=== PATIENT | female | born 1990 | race African-American/Black ===

== ENCOUNTER → 2020-01-30 | Outpatient (CLI) | payer OTHER ==
[~2020-01-30] MED LIST: MAPA325T8 PO; MAPA500T2 PO; PRENTAB9 PO
--- NOTE | 2020-03-02 13:04 | REP ---
LIMITED OBSTETRICAL ULTRASOUND: HISTORY: Fibroid uterus, advanced . TECHNIQUE: Transabdominal obstetrical ultrasound with color Doppler evaluation. COMPARISON: None available. FINDINGS: Single live advanced gestation identified in cephalic presentation. motion identified. Placenta noted right laterally and grade 2 without placenta previa or abruption. Amniotic fluid volume is normal. LIANE equals 14.9 cm. heart rate equals 150 beats per minute. BIOMETRY CHART: BPD 96 mm 39 weeks 2 days Head circumference 332 mm 37 weeks 6 days Abdominal circumference 355 mm 39 weeks 3 days Femur length 73 mm 37 weeks 4 days Humeral length 64 mm 38 weeks 0 days Gestational age by current measurements is 38 weeks 2 days with estimated date of delivery of 02/11/20. Estimated weight is 3597 grams (76th percentile based on current measurements). Umbilical cord S/D ratio is 2.47. Multiple anterior intramural fibroids are appreciated with the largest 3 fibroids measuring 4.1 x 1.6 x 2.5 cm, 3.5 x 1.6 x 3.8 cm and 5.2 x 4.0 x 5.7 cm. IMPRESSION: 1. Single live advanced gestation with current biometrical measurements at 38 weeks 2 days gestational age. 2. Amniotic fluid volume is within normal limits. 3. Multiple anterior intramural fibroids measuring up to 5.7 cm maximal diameter. MTDD
== END ==
LOC: M RAD 15:43
PROVIDERS: ATTEND Obstetrics & Gynecology
DX: Z36.4 Encounter for antenatal screening for fetal growth retardation (principal); Z3A.38 38 weeks gestation of pregnancy; O34.593 Maternal care for other abnormalities of gravid uterus, third trimester

== ENCOUNTER 2020-02-18 11:47 | Outpatient (CLI) | payer OTHER ==
[~2020-02-18] VITALS: Ht 175.3 cm; Wt 90.3 kg
[~2020-02-18 11:47] MED LIST changes: -MAPA500T2 PO; -PRENTAB9 PO
[2020-02-18 13:20] LABS: HEMATOCRIT 28.8 % (36.0-47.0); HEMOGLOBIN 10.3 g/dl (12.0-15.5); MEAN CORPUSCULAR HEMOGLOBIN 26.6 pg (27.0-33.0); MEAN CORPUSCULAR HGB CONC 35.8 g/dl (32.0-36.5); MEAN CORPUSCULAR VOLUME 74.4 fl (80.0-96.0); PLATELET COUNT, AUTOMATED 192 10^3/uL (150-450); RED BLOOD COUNT 3.87 10^6/uL (4.00-5.40); WHITE BLOOD COUNT 7.3 10^3/uL (4.0-10.0)
[2020-02-18 13:52] LABS: ALBUMIN 2.6 GM/DL (3.2-5.2); ALT/SGPT 11 U/L (12-78); BILIRUBIN,TOTAL 0.7 MG/DL (0.2-1.0); BLOOD UREA NITROGEN 3 MG/DL (7-18); CALCIUM LEVEL 8.4 MG/DL (8.5-10.1); CARBON DIOXIDE LEVEL 25 MEQ/L (21-32); CHLORIDE LEVEL 107 MEQ/L (98-107); CREATININE FOR GFR 0.35 MG/DL (0.55-1.30); GLOMERULAR FILTRATION RATE > 60.0 (>60); GLUCOSE, FASTING 82 MG/DL (70-100); POTASSIUM SERUM 2.9 MEQ/L (3.5-5.1); SODIUM LEVEL 138 MEQ/L (136-145); TOTAL PROTEIN 6.9 GM/DL (6.4-8.2)
[2020-02-18 15:23] LABS: CREATININE,RANDOM URINE 50.2 MG/DL; TOTAL PROTEIN,RANDOM URINE 25.9 MG/DL (0.0-12.0)
== END 2020-02-18 16:30 | disposition home or self-care (01) ==
LOC: M LDO 11:47 → M LDI 11:47 → UNDOADMIN 11:47 → UNDODISIN 16:30 → M LDO 16:30 → EDSTATUS 03-05 08:11
PROVIDERS: ATTEND Registered Nurse
DX: O13.3 Gestational [pregnancy-induced] hypertension without significant proteinuria, third trimester (principal); Z3A.38 38 weeks gestation of pregnancy
CPT/HCPCS: 36415; 59025; 80053; 82239; 82570; 84156; 85027; G0378; G0463

== ENCOUNTER → 2020-02-20 | Outpatient (REF) | payer OTHER ==
[~2020-02-20] MED LIST changes: +MAPA500T2 PO; +PRENTAB9 PO
[2020-02-20 14:09] LABS: URINE TOTAL PROTEIN 14.2 MG/DL (0-12)
[2020-02-20 21:40] LABS: TOTAL PROTEIN 24 HOUR URINE 357.8 MG/24HR (50-150)
== END ==
LOC: M LAB REF 11:37
PROVIDERS: ATTEND Radiology Diagnostic Radiology
DX: Z13.228 Encounter for screening for other metabolic disorders (principal)

== ENCOUNTER 2020-02-25 11:32 | Inpatient (IN) | payer OTHER ==
[~2020-02-25] VITALS: Ht 162.6 cm; Wt 93.0 kg
[2020-02-25] VITALS (10 sets, daily range): BP systolic 117–144; BP diastolic 68–95
[~2020-02-25 11:32] MED LIST changes: -MAPA500T2 PO; -PRENTAB9 PO
[2020-02-25] MEDS ORDERED: PRENTAB9 PO ×2 (11:51→12:15)
[2020-02-25] MEDS ORDERED: MAPA500T2 PO (12:15)
[2020-02-25] MEDS ORDERED: LACTATED RINGER'S 1000 ML IV STA (13:19)
[2020-02-25] MEDS ORDERED: MOM 30ML SUSPENSION UDC PO PRN (13:30)
[2020-02-25] MEDS ORDERED: diphenhydrAMINE 25MG CAP PO PRN (13:30)
[2020-02-25] MEDS ORDERED: CALCIUM CARBONATE 500 MG CHEW U/D PO PRN (13:30)
[2020-02-25] MEDS ORDERED: ACETAMINOPHEN 500 MG TAB PO PRN (13:30)
[2020-02-25] MEDS ORDERED: PROMETHAZINE INJ 25 MG/ML VIAL (J2550) IV PRN (13:30)
[2020-02-25] MEDS ORDERED: ONDANSETRON 4MG/2ML VIAL IV SCH (13:30)
[2020-02-25] MEDS ORDERED: BUTORPHANOL 2 MG/ML INJ (J0595) IV PRN (13:30)
[2020-02-25] MEDS ORDERED: SIMETHICONE 80 MG CHEW TAB PO PRN (13:30)
--- NOTE | 2020-02-25 13:35 | HPEPDOC ---
Obstetrical History & Physical General Date of Admission Feb 25, 2020 at 12:51 History of Present Illness Patient is a at 39.5wks with mild preeclampsia. No current ctx, LOF or VB. No headache or visual changes. recent 24hr protein in 300s. Chief Complaint: Pre-eclamsia Information Provided By: Patient Care Care: Good Care Dating Final EDC: Feb 27, 2020 Final EDC by: LMP Past Medical History Past Obstetrical History : Past Obstetrical History: Multigravida Type of Delivery: Spontaneous Vaginal Del. 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 fibroids Past Medical History Medical History Fundal fibroid, sickle cell anemia Surgical History: Other (circumcision of clitoris) Family History Significant Family History: No pertinent family hx Social History Social history [place] Marital Status: Family situation: Spouse/partner home Psychosocial History: No pertinent psych hx * Smoker: non-smoker Alcohol: Denies Drugs: denies Abuse Violence Screening Have you been hit/kicked/slapp: No Have you been sexually assault: No Allergies Coded Allergies: quinine (Verified Allergy, Severe, 02/18/20) Medications Scheduled No.137/Iron/Folic Acd ( Vitamin Tablet) 1 Each Tablet, 1 TAB PO DAILY Miscellaneous Medications Acetaminophen (Mapap) 500 Mg Tablet, 1,000 MG PO Physical Examination Physical Examination GENERAL: Alert and oriented times three. BREAST: . ABDOMEN: Gravid and non-tender to touch. FETUS: Is vertex (VTX) by sterile vaginal examination (SVE), fetus is approx 3000 by [place]. HEART RATE: Regular rate and rhythm. LUNGS: Clear to auscultation (CTA). EXTREMITIES: No edema. Laboratory Data 24H LABS Laboratory Tests 2 02/25/20 13:01: Serology Scanned Report Hepatitis B Testing Pertinent Laboratoy Data Blood Type: O+ RBC Antibody Screen: Negative HIV: Negative Hepatitis B: Negative Rapid Plasma Reagin: Nonreactive Rubella: Immune Varicella: Immune Chlamydia/Gonorrhea: Negative Group B Streptococcus: Negative Glucose Tolerance Test: 141 Anatomy Ultrasound Ultrasound Date: Sep 25, 2019 Placenta Location: Posterior Normal Anatomy: Yes Placenta Previa: No Estimated Weight (grams): 244 Steroid Therapy Steroid Therapy: No Vaginal Examination Dilation: Fingertip Effacement: other (0) Cervical Consistency: Firm Cervical Position: Posterior Assessment Heart Rate (FHR): 150 Variability: Decreased Accelerations: Present Decelerations: None Tocometer Contractions: No Multi-drug resistant Organism: No history of MDRO Assessment/Plan Assessment Patient is a at 39.5wks with mild preeclampsia. Admit for IOL for mild preeclampsia. D/w different ways of IOL and risks and benefits. Also d/w possible risks to and hemorrhage from fibroid and lower hct. She agreed to Tx PRBC for emergency. Will T&C 2Un PRBC. Plan Admit and orient. Private Inquiry Agent and consent. Diet: Regular. Group B Streptococcus (GBS) negative. Labs and intravenous (IV) per unit protocol. Counseled on Pitocin and induction of labor (IOL). Lactated Ringers (LR): Bolus 500 mL, then at 125 mL/hr. Anticipate normal spontaneous delivery (). C-S and VAVD as appropriate. Pain mgt per patient desire. Ana Montes De Oca MD Feb 25, 2020 13:35
[2020-02-25 14:32] LABS: BASO % 0.1 % (0.0-1.0); EOS % 0.6 % (0.0-3.0); HEMATOCRIT 31.2 % (36.0-47.0); LYMPH # 2.1 10^3/uL (1.5-5.0); LYMPH % 29.7 % (24.0-44.0); MEAN CORPUSCULAR HEMOGLOBIN 26.3 pg (27.0-33.0); MEAN CORPUSCULAR HGB CONC 35.3 g/dl (32.0-36.5); MEAN CORPUSCULAR VOLUME 74.5 fl (80.0-96.0); MONO # 0.9 10^3/uL (0.0-0.8); NEUTROPHILS # 4.1 10^3/uL (1.5-8.5); NEUTROPHILS % 57.2 % (36.0-66.0); PLATELET COUNT, AUTOMATED 247 10^3/uL (150-450); RED BLOOD COUNT 4.19 10^6/uL (4.00-5.40); WHITE BLOOD COUNT 7.1 10^3/uL (4.0-10.0)
[2020-02-25] MEDS: LR 1,000 ML IV SCH (14:42)
[2020-02-25] MEDS: miSOPROStol 50 MCG 1/2 TAB (S0191) PO PRN ×2 (14:57→20:00)
[2020-02-25 14:58] LABS: ALT/SGPT 10 U/L (12-78); BILIRUBIN,TOTAL 0.5 MG/DL (0.2-1.0); CREATININE FOR GFR 0.41 MG/DL (0.55-1.30); GLOMERULAR FILTRATION RATE > 60.0 (>60); LDH LACTATE DEHYDROGENASE 180 U/L (84-246); URIC ACID 3.7 MG/DL (2.6-6.0)
[2020-02-26] VITALS (26 sets, daily range): BP systolic 109–152; BP diastolic 57–89
[2020-02-26] MEDS: miSOPROStol 50 MCG 1/2 TAB (S0191) PO PRN ×2 (01:25→06:18)
--- NOTE | 2020-02-26 12:36 | IPNPDOC ---
Obstetrical Progress Note Date of Service Feb 26, 2020 Subjective Labor Progress Note Late entry d/t patient status on floor Received report at sign out from Dr. Mason. Pt's spouse has translated for patient. The utility maintenance worker line was used for consent for IUPC/FSE placement. S: Malathi is a 29yo at 39+6wks admitted yesterday for Pre-Eclampsia with mild features (no ELLIS/RUQ/visual changes). She is s/p cytotec, last dose at 0619 this AM. She had stadol around 0100 this AM. She reports pain with contractions, but she does not desire further pain control at this time. Objective O: VSS, afebrile BPs mild range and normotensive, no severe features FHR 140s, moderate variability with few accels at time of note. Pt was noted to have a majority minimal variability since my acceptance of care. There have been intermittent late decelerations, as well. Pt was given LR bolus and O2 at 10L via NRB. IUPC and FSE placed and pt repositioned to left lateral. FHR variability did improve with these interventions CTX q3-6 minutes, now becoming regular VE: initial assessment when FSE/IUPC placed - 3/70/-2; repeat exam at 1155: 6/80/-2 Amniotic fluid remains clear Vital Signs Date Time Temp Pulse Resp B/P (MAP) Pulse Ox O2 Delivery O2 Flow Rate FiO2 02/26/20 09:11 97 18 149/78 (101) 02/26/20 07:20 98.4 Sterile Vaginal Examination Postion/Presentation: Cephalic presentation Assessment and Plan Status: Reassuring Group B Streptococcus: Negative Anticipate: Vaginal Delivery Additional Comments A: 29yo at 39+6wks in active labor with Category II FHT d/t minimal variability and late decelerations, all of which are responding to resuscitative interventions. P: Close maternal/ monitoring CEFM x2 Close monitoring of BP and Pre-E s/sx Continue interventions PRN Dr. Montes De Oca aware of pt status; will call at time of delivery Anticipate NIDIA CARLSON CNM Feb 26, 2020 12:36
[2020-02-26] MEDS ORDERED: OXYTOCIN 30 UNITS IN 0.9% NaCl 500ML IV BAG (J2590) As Ordered ONE ×2 (14:04→14:23)
[2020-02-26] MEDS ORDERED: OXYTOCIN DRIP 30 UNITS in IV 1 EA IV SCH (17:00)
[2020-02-26] MEDS ORDERED: fentaNYL 100 MCG/2 ML INJECTION (J3010) As Ordered ONE (17:22)
[2020-02-26] MEDS ORDERED: MORPHINE PRES-FREE INJ 10 MG/10 ML VIAL (J2274) As Ordered ONE (17:22)
[2020-02-26] MEDS ORDERED: METOCLOPRAMIDE INJ 10MG/2ML VIAL (J2765 PER 1) IV PRN (17:43)
[2020-02-26] MEDS ORDERED: diphenhydrAMINE 50MG/ML VIAL (J1200) IV PRN (17:43)
[2020-02-26] MEDS ORDERED: NALOXONE INJ 0.4MG/1ML VIAL (J2310 PER 1MG) IV PRN ×2 (17:43)
[2020-02-26] MEDS ORDERED: ONDANSETRON 4MG/2ML VIAL IV PRN ×2 (17:43→20:30)
[2020-02-26] MEDS ORDERED: NALBUPHINE HCL 10 MG/ML AMP (J2300) IV PRN (17:43)
[2020-02-26] MEDS ORDERED: LACTATED RINGER'S 1000 ML IV PRN (17:50)
[2020-02-26] MEDS ORDERED: ePHEDrine SULFATE 25 MG/5 ML(5MG/ML) SYRINGE IV PRN (17:50)
[2020-02-26] MEDS: LR 1,000 ML IV SCH (17:56)
[2020-02-26] MEDS: OXYTOCIN DRIP 30 UNITS in IV 1 EA IV SCH ×2 (20:18→20:49)
[2020-02-26] MEDS ORDERED: MEASLES,MUMPS,RUBELLA VACCINE INJ (MMR-II) (90707) SC SCH (20:30)
[2020-02-26] MEDS ORDERED: miSOPROStol 200 MCG TAB (S0191) PR ONE (20:30)
[2020-02-26] MEDS ORDERED: ANUSOL HC CREAM 30GM TOP PRN (20:30)
[2020-02-26] MEDS ORDERED: DIBUCAINE 1% OINTMENT 30GM TOP PRN (20:30)
[2020-02-26] MEDS ORDERED: METHYLERGONOVINE MALEATE 0.2 MG TAB PO PRN (20:30)
[2020-02-26] MEDS ORDERED: IBUPROFEN 800 MG TAB PO PRN (20:30)
[2020-02-26] MEDS ORDERED: RHOGAM 300 MCG (1500 IU) INJ (J2790) IM SCH (20:30)
--- NOTE | 2020-02-26 20:34 | DNPDOC ---
[facility] Delivery Note Delivery Note DATE OF DELIVERY: 02/26/2020 PREDELIVERY DIAGNOSIS: 39- 6/7 weeks' gestation. POST DELIVERY DIAGNOSIS: Delivered. PROCEDURE: Spontaneous vaginal delivery. HOLE PUNCHER STRAP: Dr. Ana Montes De Oca ANESTHESIA: Epidural. ESTIMATED BLOOD LOSS: 100mL. FINDINGS: 8pound 3ounce 3700gm girl infant, Score 8/9, nuchal cord times 0. SROM 1716 on 02/25/2020. Labor start 1600 02/25/2020. DELIVERY SUMMARY: Patient was complete and pushing upon my arrival. Spontaneous vaginal delivery of JABIER head over intact perineum. Nose and mouth were bulb suction. Shoulders and then body was easily delivered without problems at 1959. Baby was handed on mother's abdomen. Pitocin was bolused. Cord was cla mped x2 and cut when pulsation stopped. Cord blood was obtained. Placenta was delivered spontaneously and intact with a 3 vessel cord at 2001. Perineum and vagina was inspected and found to have no lacerations. Repair was not needed. Lap, instrument, and needle count was correct. Mom and baby were bonding. Ana Montes De Oca MD Feb 26, 2020 20:34
[2020-02-26] MEDS: DOCUSATE SODIUM 100 MG CAP PO SCH (21:00)
[2020-02-26] MEDS: FERROUS SULFATE 325MG TAB PO SCH (21:00)
[2020-02-27 06:00] VITALS: BP 150/78
--- NOTE | 2020-02-27 07:26 | IPNPDOC ---
Progress Note Date of Service: Feb 27, 2020 Day#: 1 Progress Note SUBJECT: Patient is a 29-year-old 2 now Para 2 status post uncomplicated spontaneous vaginal delivery without vaginal laceration, doing well day # 1. She has been ambulating, voiding spontaneously without issue and tolerating regular diet. Breast feeding without issue. Reports lochia is like a normal period. Patient is ambulating well. Reports some cramping with . Has no pain. OBJECTIVE: VITAL SIGNS: Within normal limits, afebrile. GENERAL: No acute distress HEENT: MMM BREAST: Nontender, no erythema CARDIOVASCULAR EXAMINATION: RRR RESPIRATORY EXAMINATION: Bilaterally clear ABDOMINAL EXAMINATION: Soft, appropriate tenderness, nondistended, fundus -2 PERINEUM: Intact, minimal lochia EXTREMITIES: no edema, nontender ASSESSMENT: Patient is a 29-year-old 2 now Para 2 status post uncomplicated spontaneous vaginal delivery without vaginal laceration, doing well day # 1. Vitals within normal limits, afebrile, hemodynamically stable with no evidence of infection. PLAN: 1. Continue care. 2. Tylenol and Motrin for pain. 3. Encourage breast feeding and ambulation. VS, I&O, 24H, Fishbone Vital Signs/I&O Vital Signs Date Time Temp Pulse Resp B/P (MAP) Pulse Ox O2 Delivery O2 Flow Rate FiO2 02/26/20 18:50 94 144/62 (89) 02/26/20 18:18 98.6 18 02/26/20 17:42 99 I&O- Last 24 Hours up to 6 AM 02/26/20 06:00 Intake Total 1830 ml Output Total 1100 ml Balance 730 ml Ana Montes De Oca MD Feb 26, 2020 20:37
[2020-02-27] MEDS: DOCUSATE SODIUM 100 MG CAP PO SCH ×2 (09:23→20:25)
[2020-02-27] MEDS: FERROUS SULFATE 325MG TAB PO SCH ×3 (09:23→20:25)
[2020-02-27] MEDS: PRENATAL VITAMINS CHEWABLE TABLET PO SCH (09:23)
[2020-02-27 18:30] VITALS: BP 166/98
[2020-02-27 18:59] VITALS: BP 140/90
[2020-02-27 22:00] VITALS: BP 141/93
[2020-02-28 06:00] VITALS: BP 132/80
[2020-02-28] MEDS: PRENATAL VITAMINS CHEWABLE TABLET PO SCH (07:48)
[2020-02-28] MEDS: DOCUSATE SODIUM 100 MG CAP PO SCH (07:49)
[2020-02-28] MEDS: FERROUS SULFATE 325MG TAB PO SCH (07:49)
[2020-02-28] MEDS ORDERED: miSOPROStol 200 MCG TAB (S0191) As Ordered ONE (08:11)
== END 2020-02-28 13:00 | disposition home or self-care (01) | DRG 807 ==
LOC: M LDO 11:32 → M LDI 12:51 → M OBS 02-26 22:48
PROVIDERS: ADMIT Registered Nurse Maternal Newborn; ATTEND Registered Nurse Maternal Newborn
PROC: 3E0DXGC Introduction of Other Therapeutic Substance into Mouth and Pharynx, External Approach (ICD-10-PCS; 2020-02-25)
PROC: 10E0XZZ Delivery of Products of Conception, External Approach (ICD-10-PCS; principal; 2020-02-26)
DX: O14.04 Mild to moderate pre-eclampsia, complicating childbirth (principal); Z37.0 Single live birth; Z3A.39 39 weeks gestation of pregnancy; Z88.8 Allergy status to other drugs, medicaments and biological substances; D57.1 Sickle-cell disease without crisis; O99.02 Anemia complicating childbirth